=== PATIENT | male | born 1970 | race Two or more races ===

== ENCOUNTER 2018-05-21 15:47 | Emergency (ER) | payer SELFPAY ==
[~2018-05-21] VITALS: Ht 162.6 cm; Wt 72.6 kg
[2018-05-21 15:51] VITALS: BP 94/60
--- NOTE | 2018-05-21 17:04 | Diagnostic Imaging Report ---
Indication: Pain Findings: 3 views of the right elbow were obtained. No acute fractures, malalignment, erosions or periostitis are identified. Bone mineralization is within normal limits. Soft tissues are unremarkable. Impression: Negative examination of the elbow.
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
[2018-05-21 19:00] VITALS: BP 94/60
== END 2018-05-21 19:00 | disposition home or self-care (01) ==
LOC: EDBD 15:47 → EMR 16:53
DX: F10.929 Alcohol use, unspecified with intoxication, unspecified (principal); S50.01XA Contusion of right elbow, initial encounter; W19.XXXA Unspecified fall, initial encounter; Y93.9 Activity, unspecified; Y92.9 Unspecified place or not applicable
CPT/HCPCS: 99283